=== PATIENT | female | born 1970 | race Caucasian/White ===

== ENCOUNTER 2021-02-01 19:55 | Emergency (ER) | payer SELFPAY ==
[~2021-02-01] VITALS: Ht 165.1 cm; Wt 80.0 kg
[2021-02-01 21:28] LABS: BASOPHILS % 0.4 % (0.0-2.0); EOSINOPHILS % 0.7 % (0.0-5.0); HEMATOCRIT. 42.1 % (36.0-48.0); HEMOGLOBIN. 14.2 g/dL (12.0-16.0); LYMPHOCYTES % 28.8 % (20.0-50.0); MEAN CORPUSCULAR HEMOGLOBIN 28.1 pg (28.0-32.0); MEAN CORPUSCULAR VOLUME 83.5 fL (81.0-99.0); MEAN PLATELET VOLUME 9.3 fl (7.4-10.4); MONOCYTES % 4.9 % (2.0-8.0); NEUTROPHILS % 65.2 % (40.0-76.0); PLATELET 232 x1000/uL (130-400); RED BLOOD CELL COUNT 5.04 mill/uL (4.2-5.4)
[2021-02-01] MEDS ORDERED: NICARDIPINE 40MG/200ML PREMIX 200 ML IV STA (21:37)
[2021-02-01 21:39] LABS: CHLORIDE 103 mEq/L (98-107)
[2021-02-01 21:42] LABS: HCG SCREEN NEGATIVE
[2021-02-01 22:08] LABS: INR 1.1; PARTIAL THROMBOPLASTIN TIME 23.6 sec (23.4-31.0); PROTHROMBIN TIME 11.3 sec (9.6-11.0)
[2021-02-01] MEDS ORDERED: IOHEXOL-350 100 ML BOTTLE ONE (22:30)
[2021-02-01] MEDS ORDERED: MORPHINE SULFATE 4 MG/ML CPJ (NOT FOR IM USE) IV ONE (22:30)
[2021-02-01] MEDS ORDERED: KCL 20MEQ/100ML PREMIX 100 ML IV SCH (23:00)
[2021-02-02] VITALS: BP 118/55
== END 2021-02-02 00:51 | disposition short-term general hospital (02) ==
LOC: ER 19:55
DX: R51.9 Headache, unspecified (principal); R11.10 Vomiting, unspecified; Z20.822 Contact with and (suspected) exposure to COVID-19
CPT/HCPCS: 36415; 70450; 70496; 70498; 80048; 80076; 82962; 84484; 84703; 85025; 85610; 85730; 87426; 96365; 96367; 96375; 99285; J2270; J3480; Q9967; Z7610